=== PATIENT | female | born 1990 | race African-American/Black ===

== ENCOUNTER 2020-10-13 09:41 | Emergency (ER) | payer MEDICAID ==
[~2020-10-13] VITALS: Ht 160 cm; Wt 52.2 kg
--- NOTE | 2020-10-13 09:55 | NUR ---
urine collected sent to lab
[2020-10-13 10:15] VITALS: BP 107/66
--- NOTE | 2020-10-13 10:15 | NUR ---
Rx provided, instructed patient to drink plenty of fluids. Patient discharged to home in stable condition. Written and verbal after care instructions given. Patient verbalizes understanding of instruction.
[2020-10-13 10:17] LABS: BILIRUBIN,URINE NEGATIVE (NEGATIVE); BLOOD, URINE SMALL Ery/uL (NEGATIVE); COLOR,URINE YELLOW (YELLOW); LEUKOCYTE ESTERASE ,URINE NEGATIVE (NEGATIVE); NITRITE, URINE NEGATIVE (NEGATIVE); PROTEIN,URINE NEGATIVE (NEGATIVE); UGLUCOSE NEGATIVE (NEGATIVE); UROBILINOGEN,URINE 0.2 EU/dL (0.2)
[2020-10-13 10:51] LABS: BACTERIA,URINE Few /HPF (None Seen); SQUAMOUS EPITHELIAL CELL,UR Few /HPF (None Seen); WBC,URINE 0-2 /HPF (0-3)
== END 2020-10-13 10:16 | disposition home or self-care (01) ==
LOC: ER 09:46
DX: N39.0 Urinary tract infection, site not specified (principal); F17.200 Nicotine dependence, unspecified, uncomplicated; Z60.2 Problems related to living alone
CPT/HCPCS: 81001; 84703-TC; 87086-TC; 87186-TC